=== PATIENT | male | born 2000 | race Caucasian/White ===

== ENCOUNTER → 2020-01-08 | Outpatient (CLI) | payer BC ==
[2020-01-08 14:09] LABS: Basophils % (A) 1 %; Eosinophils # (A) 0.1 k/uL (0-0.7); Eosinophils % (A) 2 %; HCT 44.8 % (39.0-53.0); HGB 14.4 gm/dL (13.0-17.5); Lymphocytes # (A) 1.7 k/uL (1.0-4.8); Lymphocytes % (A) 31 %; MCH 29.5 pg (25.0-35.0); MCHC 32.2 g/dL (31.0-37.0); MCV 91.4 fL (80.0-100.0); Mean Platelet Volume 7.2; Monocytes # (A) 0.3 k/uL (0-1.0); Monocytes % (A) 5 %; Neutrophils # (A) 3.2 k/uL (1.3-7.7); Neutrophils % (A) 58 %; Platelet Count 207 k/uL (150-450); RDW 12.4 % (11.5-15.5); WBC 5.5 k/uL (4.0-11.0)
[2020-01-08 19:09] LABS: African American GFR (CKD) 125.9 (60.0-200.0); Albumin 5.2 g/dL (3.80-4.90); Albumin/Globulin Ratio 2.26 (1.60-3.17); Anion Gap 10.9 mmol/L (4.00-12.00); Calcium 10.3 mg/dL (8.7-10.3); Carbon Dioxide 27.1 mmol/L (21.6-31.8); Globulin 2.3 g/dL (1.6-3.3); Non-African American GFR(CKD) 108.6 (60.0-200.0); Potassium 4.2 mmol/L (3.5-5.5); Total Bilirubin 0.9 mg/dL (0.2-1.2); Total Protein 7.5 g/dL (6.2-8.2)
[2020-01-08 19:18] LABS: Erythrocyte Sedimentation Rate 1 mm/Hr (0-15)
== END | disposition home or self-care (01) ==
LOC: LABWHC1 13:13
PROVIDERS: ATTEND Pediatrics
DX: R63.4 Abnormal weight loss (principal)
CPT/HCPCS: 36415; 80053; 83516; 84443; 85025; 85652